=== PATIENT | male | born 1980 | race Caucasian/White ===

== ENCOUNTER 2016-06-17 18:13 | Emergency (ER) | payer OTHER ==
--- NOTE | ~2016-06-17 | ER ---
PATIENT'S NAME: TRACE GOODWIN [facility] AGE: 35 Y [address] ROOM: [place] [address] LOCATION: [facility] ADMIT DATE: 06/17/2016 ER/Outpatient Report DISCHARGE DATE: 06/17/2016 FAMILY PHYSICIAN: PHYSICIAN, NO ATTENDING PHYSICIAN: Adonay Rios TIME SEEN: 1830 hours. HISTORY OF PRESENT ILLNESS: The patient 35-year-old male who works for [employer]. The patient was sent home from work yesterday with symptoms of nausea, vomiting, and diarrhea. The patient states today he vomited once this morning and has had about 2 loose stools, however, still feels somewhat tired. PAST MEDICAL HISTORY: ALLERGIES: HE HAS NO MEDICINAL ALLERGIES. HOME MEDICATIONS: He has been using some qlfa-kye-djjqulf Tums, Tylenol, and ibuprofen. MEDICAL HISTORY: He has a history of some intermittent chest pain, none today. Otherwise, no chronic diseases. PAST SURGICAL HISTORY: Cholecystectomy and testicular surgery. SOCIAL HISTORY: Smoker, a pack a day. Alcohol, occasionally. REVIEW OF SYSTEMS: GENERAL: He has had some chills, but denies fevers. HEAD AND EENT: He has had a headache which he has taken some Tylenol for. Otherwise, no nasal discharge, no sore throat. RESPIRATORY: No cough, wheezing, or shortness of breath. GASTROINTESTINAL: A 24-hour history of nausea, vomiting, and diarrhea. GENITOURINARY: No burning, frequency, or urgency. SKIN: No recent rash. PHYSICAL EXAMINATION: VITAL SIGNS: On exam, his blood pressure was 134/82, his temperature is 97.1, his pulse 81, respiratory rate 16, and his O2 saturations 95%. PATIENT'S NAME: TRACE GOODWIN [facility] AGE: 35 Y [address] ROOM: [place] [address] LOCATION: [facility] ADMIT DATE: 06/17/2016 ER/Outpatient Report DISCHARGE DATE: 06/17/2016 FAMILY PHYSICIAN: PHYSICIAN, NO ATTENDING PHYSICIAN: Adonay Rios GENERAL APPEARANCE: Alert, cooperative, well nourished, no obvious distress. HEENT: Eyes: PERRL. No icterus. Nose: Septum midline. Mouth: Teeth in good repair. Buccal membranes were moist. LUNGS: Sounded clear peripherally. HEART: No tachycardia. ABDOMEN: Soft. No guarding. No rebound. Bowel sounds active. LABORATORY DATA: CMS: His chloride was slightly low 111 as well as his calcium was 8.4. Otherwise CBC: White count slightly elevated at 11.2, his hemoglobin was 14.2, and his ANC was 7.6. ASSESSMENT: Gastroenteritis. PLAN: Continue clear liquids tonight. Advance diet tomorrow. Follow up if symptoms do not improve. The patient was given a work note for a part of yesterday and today. HERNANDO PRITCHARD FOR DO VIKTOR GENTILE/jenifer /[id number] d: 06/17/16 2352 t: 06/25/16 1009, OUTPATIENT REPORT
[2016-06-17 18:59] LABS: BASOPHIL # 0.1 K/uL (0.0-0.2); BASOPHIL % 0.8 %; EOSINOPHIL # 0.4 K/uL (0.0-0.5); EOSINOPHIL % 3.2 %; HEMATOCRIT 41.2 % (37.0-53.0); HEMOGLOBIN 14.2 g/dL (12.0-17.0); IMMATURE GRANULOCYTE % 0.2 %; LYMPHOCYTE # 2.2 K/uL (0.8-4.0); LYMPHOCYTE % 19.5 %; MCH 30.1 pg (27.0-34.0); MCHC 34.5 gm/dL (32.0-36.5); MCV 87.3 fl (83.0-98.0); MONOCYTE % 8.5 %; MPV 10.4 fl (9.4-12.4); NEUTROPHIL # (ANC) 7.6 K/uL (1.4-9.0); NEUTROPHIL % 67.8 %; NRBC % 0 /100WBC (0-0.00); PLATELET COUNT 253 K/uL (150-450); RBC 4.72 M/uL (4.00-6.00); RDW-CV 12.4 % (11.9-14.6); WBC 11.2 K/uL (4.0-11.0)
[2016-06-17 19:17] LABS: ALBUMIN 3.6 gm/dL (3.5-5.0); ALK PHOS 85 IU/L (33-138); ALT 23 IU/L (12-78); ANION GAP 8.9 (10.0-19.0); AST 15 IU/L (10-40); BLOOD UREA NITROGEN 20 mg/dL (6-24); CALCIUM 8.4 mg/dL (8.5-10.5); CHLORIDE 111 mMol/L (96-110); CO2 29 mMol/L (22-32); CREATININE 1.2 mg/dL (0.6-1.3); ESTIMATED GFR (MDRD EQUATION) > 60; POTASSIUM 3.9 mMol/L (3.7-5.1); SODIUM 145 mMol/L (135-145); TOTAL BILIRUBIN 0.6 mg/dL (0.0-1.5); TOTAL PROTEIN 6.9 g/dL (6.0-8.4)
[2016-07-07] MEDS ORDERED: OMEPRAZOLE40 MG PO (16:28)
[2016-07-09] MEDS ORDERED: COLESTID1 GM PO (10:17)
== END 2016-06-17 19:27 | disposition disaster alternative care site (69) ==
LOC: GMED 18:13
PROVIDERS: Physician Assistant Medical
DX: K52.9 Noninfective gastroenteritis and colitis, unspecified (principal); Z90.49 Acquired absence of other specified parts of digestive tract

== ENCOUNTER → 2016-06-19 | Outpatient (CLI) | payer OTHER ==
[~2016-06-19] MED LIST: COLESTID1 GM PO; OMEPRAZOLE40 MG PO
== END | disposition disaster alternative care site (69) ==
LOC: GRAD 14:14
DX: R10.816 Epigastric abdominal tenderness (principal); R11.2 Nausea with vomiting, unspecified; R16.0 Hepatomegaly, not elsewhere classified; Z90.49 Acquired absence of other specified parts of digestive tract; Z83.79 Family history of other diseases of the digestive system
CPT/HCPCS: Q9967

== ENCOUNTER → 2016-07-09 | Day surgery (SDC) | payer OTHER ==
[~2016-07-09] VITALS: Ht 180.3 cm; Wt 101.1 kg
== END | disposition disaster alternative care site (69) ==
LOC: GPOC 07-07 10:00 → GEND 08:08 → GPOC 10:00
PROC: 0DB98ZX Excision of Duodenum, Via Natural or Artificial Opening Endoscopic, Diagnostic (ICD-10-PCS; principal; 2016-07-09)
PROC: 0DBE8ZX Excision of Large Intestine, Via Natural or Artificial Opening Endoscopic, Diagnostic (ICD-10-PCS; 2016-07-09)
DX: K52.9 Noninfective gastroenteritis and colitis, unspecified (principal); K62.5 Hemorrhage of anus and rectum; R14.0 Abdominal distension (gaseous)
CPT/HCPCS: J7030

== ENCOUNTER 2016-10-09 12:36 | Emergency (ER) | payer SELFPAY ==
--- NOTE | ~2016-10-09 | ER ---
PATIENT'S NAME: TRACE GOODWIN [facility] AGE: 36 Y [address] ROOM: [place], [place] [address] LOCATION: [facility] ADMIT DATE: 10/09/2016 ER/Outpatient Report DISCHARGE DATE: 10/09/2016 FAMILY PHYSICIAN: PHYSICIAN, NO ATTENDING PHYSICIAN: Matias Orourke Time of Arrival: 1236 hours. Time of Evaluation: 1305 hours. CHIEF COMPLAINT: Recent gastroenteritis. HISTORY OF PRESENT ILLNESS: This is a 36-year-old male who presents to the ER, who states that for the last couple of days he has had nausea, vomiting, and diarrhea. He states finally around 10 or 11 o'clock today, he felt like his fever broke. He says he finally feels like he is feeling better. The patient states that he called in to work today and they told him that he needed to have a work note. He states that he tried to go to the clinic today, but they wanted too much money up front and so then his Work told him that he had to get a note from the emergency room, so he presented here. The patient states that all he truly wants is to be able to go back to work tomorrow. He states that he is feeling better in regard to his recent illness. ALLERGIES: PLEASE SEE MEDICATION LIST NURSE'S NOTES. MEDICATIONS: Please see medication list nurse's notes. PAST MEDICAL HISTORY: Negative. PAST SURGICAL HISTORY: Cholecystectomy and a testicle surgery. SOCIAL HISTORY: Smokes half a pack a day for the last 7 years. Drinks alcohol occasionally. Denies any drug use. REVIEW OF SYSTEMS: CONSTITUTIONAL: Denies any change in weight or fatigue. HEENT: No change in vision or nasal discharge. RESPIRATORY: No shortness of breath or cough. PATIENT'S NAME: TRACE GOODWIN [facility] AGE: 36 Y [address] ROOM: [place], [place] [address] LOCATION: [facility] ADMIT DATE: 10/09/2016 ER/Outpatient Report DISCHARGE DATE: 10/09/2016 FAMILY PHYSICIAN: PHYSICIAN, NO ATTENDING PHYSICIAN: Matias Orourke GI: Had nausea, vomiting, and diarrhea the last few days, that has improved. SKIN: No lesions or rashes. PHYSICAL EXAMINATION: VITAL SIGNS: Weight 110 kg taken, blood pressure is 120/72, pulse 68, respirations 20, temperature 97 degrees tympanically, and saturations 96% on room air. Nati Coma Score is 15. GENERAL: Alert, calm, well-developed male, in no acute distress. LUNGS: Clear to auscultation bilaterally. HEART: Regular rate and rhythm. EXTREMITIES: No clubbing or cyanosis. Has full range of motion of all limbs. LABORATORY DATA AND X-RAYS: None were done. IMPRESSION: Recent gastroenteritis, improved. ASSESSMENT AND PLAN: The patient was given a work note for him to return back to work tomorrow. He needs to continue to push fluids, monitor his symptoms, and follow up with his primary care physician if needed. The patient understands and agrees with care. TRACEY RODRIGUEZ PA-C FOR MD HERBERTH MCKEON/jenifer /[id number] d: 10/09/16 2136 t: 10/21/16 0621, OUTPATIENT REPORT
== END 2016-10-09 13:24 | disposition disaster alternative care site (69) ==
LOC: GMED 12:36
DX: K52.9 Noninfective gastroenteritis and colitis, unspecified (principal); F17.210 Nicotine dependence, cigarettes, uncomplicated; Z90.49 Acquired absence of other specified parts of digestive tract; Z98.890 Other specified postprocedural states